=== PATIENT | male | born 1955 | race African-American/Black ===

== ENCOUNTER 2021-05-18 19:15 | Emergency (ER) | payer OTHER ==
[~2021-05-18] VITALS: Ht 182.9 cm; Wt 82.0 kg
[2021-05-18] MEDS ORDERED: ASPIRIN 81MG TABLET PO ONE (23:45)
[2021-05-19 00:48] LABS: BASOPHILS % 1.1 % (0.0-2.0); EOSINOPHILS % 3.1 % (0.0-5.0); HEMATOCRIT. 37.7 % (42.0-52.0); HEMOGLOBIN. 12.1 g/dL (14.0-18.0); LYMPHOCYTES % 16.4 % (20.0-50.0); MEAN CORPUSCULAR HEMOGLOBIN 26.6 pg (28.0-32.0); MEAN CORPUSCULAR VOLUME 82.8 fL (80.0-94.0); MEAN PLATELET VOLUME 8.3 fl (7.4-10.4); NEUTROPHILS % 73.4 % (40.0-76.0); PLATELET 197 x1000/uL (130-400); RED BLOOD CELL COUNT 4.56 mill/uL (4.7-6.1); RED CELL DISTRIBUTION WIDTH 16.4 % (11.6-14.6)
[2021-05-19 00:58] LABS: CHLORIDE 109 mEq/L (98-107)
[2021-05-19] MEDS ORDERED: HYDROCODONE/ACETAMINOPHEN 10/325MG TABLET PO ONE (05:15)
[2021-05-19] MEDS ORDERED: DIVALPROEX SODIUM 125MG DR TABLET PO ONE (05:15)
[2021-05-19] MEDS ORDERED: CLONIDINE 0.1MG TABLET PO ONE (05:15)
[2021-05-19 09:12] VITALS: BP 110/81
== END 2021-05-19 09:34 | disposition home or self-care (01) ==
LOC: ER 19:15
DX: I73.9 Peripheral vascular disease, unspecified (principal); M79.662 Pain in left lower leg; E11.9 Type 2 diabetes mellitus without complications; G40.909 Epilepsy, unspecified, not intractable, without status epilepticus; K21.9 Gastro-esophageal reflux disease without esophagitis; I48.91 Unspecified atrial fibrillation; F03.90 Unspecified dementia, unspecified severity, without behavioral disturbance, psychotic disturbance, mood disturbance, and anxiety; I50.9 Heart failure, unspecified; N18.9 Chronic kidney disease, unspecified; G81.94 Hemiplegia, unspecified affecting left nondominant side; Z79.01 Long term (current) use of anticoagulants; Z88.8 Allergy status to other drugs, medicaments and biological substances; Z20.822 Contact with and (suspected) exposure to COVID-19
CPT/HCPCS: 36415; 71045; 80053; 83880; 84484; 85025; 93005; 93922; 93971; 99285